=== PATIENT | male | born 1960 ===

== ENCOUNTER 2019-04-19 11:32 | Emergency (ER) | payer SELFPAY ==
[~2019-04-19] VITALS: Ht 185.5 cm; Wt 88.2 kg
[2019-04-19 12:04] LABS: BACTERIA,URINE NEGATIVE /HPF; BILIRUBIN,URINE NEGATIVE (NEGATIVE); CLARITY,URINE CLEAR; COLOR,URINE YELLOW; GLUCOSE, URINE (UA) NEGATIVE (NEGATIVE); KETONES,URINE NEGATIVE (NEGATIVE); LEUKOCYTE ESTERASE ,URINE NEGATIVE (NEGATIVE); NITRITE,URINE NEGATIVE (NEGATIVE); PH,URINE 5.5 (5-9); PROTEIN,URINE NEGATIVE (NEGATIVE); SQUAMOUS EPITHELIAL CELL,UR 0-2 /HPF
--- NOTE | 2019-04-19 12:05 | NUR ---
Dr. De Dios notified of low blood sugar of 39. Pt is refusing all CT scans, labs, and procedures except for a finger stick. Pt signed AMA form. Patient was given orange juice and chocolate pudding to bring sugar up.
[2019-04-19 12:06] VITALS: BP 141/89
--- NOTE | 2019-04-19 12:06 | NUR ---
Both AMA forms were signed at this time and witnessed by this RN.
--- NOTE | 2019-04-19 12:07 | NUR ---
Patient given orange juice, chocolate pudding, and crackers, advised patient it would be best if he could wait and have his blood sugar re-checked to make sure it normalizes. Patient and friend verbalized understanding of risks of not waiting and having further medical care, patient states he still wishes to sign out against medical advice. Patient departed facility after drinking orange juice and eating pudding and crackers.
--- NOTE | 2019-04-19 12:08 | ED General ---
General Chief Complaint: Altered Mental Status Stated Complaint: AMS Source of Information: Patient, Other (Friend) History of Present Illness Date Seen by Provider: Apr 19, 2019 Time Seen by Provider: 11:52 Initial Comments 58-year-old male presenting with a friend after they had gone to Dr. Fernandez's office for a routine visit this morning. He was fasting to have blood work and testing done this morning. He is diabetic and has not eaten yet. While he was at the office he was reportedly acting strange. He was having difficulty answering some questions. His friend and the patient both report that after they left Dr. Fernandez's office that he immediately was acting normal again. He denies any headache or change in his vision. He states that he feels fine now. He was told to come to the emergency department because they were worried that he might be having a stroke. Patient is upset that he is here and does not want to be here. He states he just wants to go get something to eat Allergies and Home Medications Allergies Coded Allergies: No Known Drug Allergies (Unverified , 04/19/19) Patient Home Medication List Home Medication List Reviewed: Yes Review of Systems Review of Systems Constitutional: no symptoms reported EENTM: no symptoms reported Respiratory: no symptoms reported Cardiovascular: no symptoms reported Gastrointestinal: no symptoms reported Genitourinary: no symptoms reported Musculoskeletal: no symptoms reported Skin: no symptoms reported Psychiatric/Neurological: No Symptoms Reported Hematologic/Lymphatic: No Symptoms Reported Past Rflyhui-Mrlfhc-Muinfn Hx Past Med/Social Hx: Reviewed Nursing Past Med/Soc Hx Past Medical History Cardiac: Yes Hypertension Endocrine: Yes Diabetes, Insulin dep Physical Exam Vital Signs Vital Signs - First Documented 04/19/19 11:36 Temp 37.1 Pulse 77 Resp 16 B/P (MAP) 141/89 (106) Pulse Ox 96 O2 Delivery Room Air Capillary Refill : Height, Weight, BMI Height: '" Weight: lbs. oz. kg; BMI Method: General Appearance: No Apparent Distress, WD/WN HEENT: PERRL/EOMI, Pharynx Normal Neck: Full Range of Motion, Normal Inspection, Non Tender, Supple Respiratory: Chest Non Tender, Lungs Clear, Normal Breath Sounds Cardiovascular: Regular Rate, Rhythm, Normal Peripheral Pulses Gastrointestinal: No Pulsatile Mass, Non Tender, Soft Extremity: Normal Capillary Refill, No Pedal Edema Neurologic/Psychiatric: Alert, Oriented x3, No Motor/Sensory Deficits, Normal Mood/Affect, high school math tutor II-XII Norm as Tested Skin: Normal Color, Warm/Dry Progress/Results/Core Measures Suspected Sepsis SIRS Temperature: Pulse: Respiratory Rate: Blood Pressure / Mean: Results/Orders Lab Results Laboratory Tests Test 04/19/19 11:45 04/19/19 12:04 Range/Units Urine Color YELLOW Urine Clarity CLEAR Urine pH 5.5 5-9 Urine Specific [place] 1.020 1.016-1.022 Urine Protein NEGATIVE NEGATIVE Urine Glucose (UA) NEGATIVE NEGATIVE Urine Ketones NEGATIVE NEGATIVE Urine Nitrite NEGATIVE NEGATIVE Urine Bilirubin NEGATIVE NEGATIVE Urine Urobilinogen 0.2 < = 1.0 MG/DL Urine Leukocyte Esterase NEGATIVE NEGATIVE Urine RBC (Auto) NEGATIVE NEGATIVE Urine RBC NONE /HPF Urine WBC NONE /HPF Urine Squamous Epithelial Cells 0-2 /HPF Urine Crystals NONE /LPF Urine Bacteria NEGATIVE /HPF Urine Casts NONE /LPF Urine Mucus NONE /LPF Urine Culture Indicated NO Glucometer 39 *L 70-110 MG/DL My Orders Orders - LEXI MOODY MD Ua Culture If Indicated (04/19/19 11:51) Ekg Tracing (04/19/19 11:51) Accucheck Stat ONCE (04/19/19 11:51) Vital Signs Stroke Patient Q15M (04/19/19 11:51) Dysphagia Screening Tool (04/19/19 11:51) Vital Signs/I&O 04/19/19 04/19/19 11:36 12:06 Temp 37.1 37.1 Pulse 77 77 Resp 16 16 B/P (MAP) 141/89 (106) 141/89 Pulse Ox 96 96 O2 Delivery Room Air Room Air Capillary Refill : Progress Note : Progress Note Patient's NIH stroke scale here was 0. His glucose Accu-Chek was 39. He was given something to eat and drink. He refused any other testing. He just wanted to leave so that he could get regular food and take his insulin. He did agree to take a snack here but then signed out AGAINST MEDICAL ADVICE and refused any further testing as he just wanted to go to regular food so that he could help bring his sugar up. I advised him that I could not rule out that there was more than just this low sugar causing his symptoms but that a low sugar could certainly cause him to be confused and have trouble concentrating. Departure Impression Primary Impression: Left against medical advice Additional Impression: Hypoglycemia associated with diabetes Disposition: 07 AGAINST MEDICAL ADVICE Condition: Against Medical Advice Departure-Patient Inst. Decision time for Depature: 12:06 Referrals: NO,LOCAL PHYSICIAN (PCP/Family) Primary Care Physician LEXI MOODY MD Apr 19, 2019 12:08
== END 2019-04-19 12:15 | disposition left against medical advice (07) ==
LOC: ER FS 11:35
DX: E11.649 Type 2 diabetes mellitus with hypoglycemia without coma (principal); I10 Essential (primary) hypertension
CPT/HCPCS: 81000; 82962